=== PATIENT | female | born 1965 | race African-American/Black ===

== ENCOUNTER 2022-09-21 14:10 | Outpatient (CLI) | payer OTHER | END 2022-09-21 14:11 | disposition home or self-care (01) | LOC: BICMAMMO 14:10 | PROVIDERS: ATTEND Family Medicine | DX: Z12.31 Encounter for screening mammogram for malignant neoplasm of breast (principal); N64.89 Other specified disorders of breast | CPT/HCPCS: 77063; 77067 ==

== ENCOUNTER 2022-10-09 14:08 | Outpatient (CLI) | payer OTHER | END 2022-10-09 14:09 | disposition home or self-care (01) | LOC: BICMAMMO 14:08 | PROVIDERS: ATTEND Family Medicine | DX: N64.89 Other specified disorders of breast (principal) | CPT/HCPCS: G0279 ==

== ENCOUNTER 2023-02-28 09:15 | Outpatient (CLI) | payer OTHER | END 2023-02-28 09:16 | disposition home or self-care (01) | LOC: RAD 09:15 | PROVIDERS: ATTEND Internal Medicine Critical Care Medicine | DX: R06.00 Dyspnea, unspecified (principal) | CPT/HCPCS: 71046 ==

== ENCOUNTER 2024-09-30 10:52 | Outpatient (CLI) | payer BC | END 2024-09-30 10:53 | disposition home or self-care (01) | LOC: BICMAMMO 10:52 | DX: Z12.31 Encounter for screening mammogram for malignant neoplasm of breast (principal) | CPT/HCPCS: 77063; 77067 ==